=== PATIENT | female | born 1930 | race Caucasian/White ===

== ENCOUNTER 2016-12-04 02:35 | Emergency (ER) | payer OTHER ==
[~2016-12-04] VITALS: Ht 152.4 cm; Wt 60.1 kg
[~2016-12-04 02:35] MED LIST: ASCO500 PO; CALC-137 PO; LEVO75TA3 PO; MEVA40TA PO; VITA100018 PO
[2016-12-04 02:50] VITALS: BP 158/84; PULSE 72; RESP 20; TEMP 98; O2SAT 94
[2016-12-04] MEDS ORDERED: CALC200S NASAL (03:34)
[2016-12-04] MEDS ORDERED: LOVA40TA PO (03:34)
[2016-12-04] MEDS ORDERED: LEVO75TA3 PO (03:34)
[2016-12-04] MEDS ORDERED: CALC1TAB77 PO (03:34)
--- NOTE | 2016-12-04 03:52 | PD ---
HPI Chief Complaint: Fall Time Seen by Provider: 03:44 Travel History International Travel<30 days: No Contact w/Intl Traveler<30days: No Traveled to known affect area: No History of Present Illness HPI The patient is an 86-year-old female that fell at 2 PM lacerating her left lower eyelid. There was no loss of consciousness. The patient's only injury is the laceration of the left lower eyelid. PFSH Social History Tobacco Use: No Allergies-Medications (Allergen,Severity, Reaction): Coded Allergies: Sulfa (Unverified Allergy, Unknown, 12/04/16) Reported Meds & Prescriptions Reported Meds & Active Scripts Active Reported Calcium 500+D3 (Calcium Carbonate-Cholecalciferol) 1,250-400 Mg-Unit Tab 1 Tab PO DAILY Calcitonin ([place]) Nasal [place] (Calcitonin [place]) 200 Unit/Act [place] 1 [place] NASAL DAILY Alternate nostrils daily. Levothyroxine (Levothyroxine Sodium) 75 Mcg Tab 75 Mcg PO DAILY Lovastatin 40 Mg Tab 40 Mg PO DAILY Review of Systems Except as stated in HPI: all other systems reviewed are Neg Physical Exam Narrative GENERAL: Well-nourished, alert and oriented, elderly patient in moderate apparent distress with her left lower eyelid laceration. Her vital signs show blood pressure 158/84 but otherwise normal. SKIN: Focused skin assessment warm/dry. There is a 2 x 1 cm flap over the lower eyelid. The flap is so close to the lid margin that I cannot safely put sutures through this area. HEAD: Normocephalic. EYES: No scleral icterus. No injection or drainage. NECK: Supple, trachea midline. No JVD or lymphadenopathy. CARDIOVASCULAR: Regular rate and rhythm without murmurs, gallops, or rubs. RESPIRATORY: Breath sounds equal bilaterally. No accessory muscle use. GASTROINTESTINAL: Abdomen soft, non-tender, nondistended. MUSCULOSKELETAL: No cyanosis, or edema. BACK: Nontender without obvious deformity. No CVA tenderness. ENT: There is no blood in the nose or nasal deformity. There is nose of nasal trauma or ear trauma. Data Data Last Documented VS Vital Signs Date Time Temp Pulse Resp B/P Pulse Ox O2 Delivery O2 Flow Rate FiO2 12/04/16 02:50 98.0 72 20 158/84 94 MDM Medical Decision Making Medical Screen Exam Complete: Yes Emergency Medical Condition: Yes Medical Record Reviewed: Yes Differential Diagnosis Lower eyelid lacerationneeding ophthalmology, lower eyelid lacerationnot needing ophthalmology Narrative Course The flap laceration has a 1 cm pedicle and is a 2 x 1 cm flap. The pedicle is located temporally on her face. I cannot safely put stitches into the superior border of this flap because it is so close to the lid margin. I discussed the patient with Dr. Zandra Ventura and she graciously agreed to see her in her office at 1 PM today. Diagnosis Primary Impression: Left eyelid laceration Additional Instructions: As we discussed, you need to go to Dr. Ventura's office at 1 PM today so that your eyelid laceration can be repaired. Disposition: 01 DISCHARGE HOME Condition: Stable Ignacio Augustine MD Dec 04, 2016 03:52
[2016-12-16] MEDS ORDERED: ERYTOIN10 LEFT EYE (15:15)
[2016-12-30] MEDS ORDERED: POLYSOL14 LEFT EYE (14:36)
[2017-01-15] MEDS ORDERED: ARTIDRO3 EACH EYE (13:07)
[2017-01-15] MEDS ORDERED: CALC200S NASAL (13:07)
[2017-01-15] MEDS ORDERED: ERYTOIN10 LEFT EYE (13:09)
[2017-01-21] MEDS ORDERED: ERYTOIN10 LEFT EYE (10:21)
== END 2016-12-04 04:10 | disposition home or self-care (01) ==
LOC: PHED 02:35
DX: S01.112A Laceration without foreign body of left eyelid and periocular area, initial encounter (principal); W18.30XA Fall on same level, unspecified, initial encounter
CPT/HCPCS: 99282

== ENCOUNTER 2017-07-18 14:39 | Emergency (ER) | payer OTHER ==
[~2017-07-18] VITALS: Ht 149.9 cm; Wt 57.1 kg
[~2017-07-18 14:39] MED LIST changes: +ARTIDRO3 EACH EYE; -ASCO500 PO; -CALC-137 PO; +CALC1TAB77 PO; +CALC200S NASAL; +ERYTOIN10 LEFT EYE; +LOVA40TA PO; -MEVA40TA PO; -VITA100018 PO
[2017-07-18 15:05] VITALS: BP 190/81; PULSE 68; RESP 16; O2SAT 98
[2017-07-18] MEDS ORDERED: LACT10SO PO (15:35)
--- NOTE | 2017-07-18 15:37 | PD ---
HPI Chief Complaint: GI Complaint Time Seen by Provider: 15:24 Travel History International Travel<30 days: No Contact w/Intl Traveler<30days: No Traveled to known affect area: No History of Present Illness HPI PATIENT STATES UNABLE TO HAVE BM OVER LAST 3 DAYS OR SO, STATES THAT SHE HAS H/ O CONSTIPATION IN PAST AND THIS CAN HAPPEN FROM TIME TO TIME. DENIES ASSOC SX OF FEVER/ABD PAIN/N/V/CP/ DENIES ANY AGGRAVATING/ALLEVIATING FACTORS. PATIENT HAS NOT TRIED TO TAKE ANY OVER THE COUNTER ANTICONSTIPATION MEDICATIONS. PFSH Past Medical History High Cholesterol: Yes Diminished Hearing: No Hypertension: Yes Immunizations Current: Yes Thyroid Disease: Yes Tetanus Vaccination: Unknown ?: Not Past Surgical History Hysterectomy: Yes Social History Alcohol Use: No Tobacco Use: No Substance Use: No Allergies-Medications (Allergen,Severity, Reaction): Coded Allergies: Sulfa (Sulfonamide Antibiotics) (Unverified Allergy, Unknown, 07/18/17) Reported Meds & Prescriptions Reported Meds & Active Scripts Active Reported Artificial Tears Opth Drops (Jbkylajj-Utohhfgellvq-Nuvikcsg Opth Drops) 0.2-0.2- 1% Drops 1-2 Drop EACH EYE PRN PRN Calcitonin ([place]) Nasal [place] (Calcitonin [place]) 200 Units/Act Soln 1 [place] NASAL DAILY Alternate nostrils daily. Calcium 500+D3 (Calcium Carbonate-Cholecalciferol) 1,250-400 Mg-Unit Tab 1 Tab PO DAILY Levothyroxine (Levothyroxine Sodium) 75 Mcg Tab 75 Mcg PO DAILY Lovastatin 40 Mg Tab 40 Mg PO DAILY Review of Systems General / Constitutional: No: Fever Eyes: No: Visual changes HENT: No: Headaches Cardiovascular: No: Chest Pain or Discomfort Respiratory: No: Shortness of Breath Gastrointestinal: Positive: Constipation Genitourinary: No: Dysuria Musculoskeletal: No: Pain Skin: No Rash Neurologic: No: Weakness Psychiatric: No: Depression Endocrine: No: Polydipsia Hematologic/Lymphatic: No: Easy Bruising Physical Exam Narrative GENERAL: SKIN: Warm and dry. HEAD: Atraumatic. Normocephalic. EYES: Pupils equal and round. No scleral icterus. No injection or drainage. ENT: No nasal bleeding or discharge. Mucous membranes pink and moist. NECK: Trachea midline. No JVD. CARDIOVASCULAR: Regular rate and rhythm. RESPIRATORY: No accessory muscle use. Clear to auscultation. Breath sounds equal bilaterally. GASTROINTESTINAL: Abdomen soft, non-tender, nondistended. RN NISHANT AT BEDSIDE WHEN RECTAL EXAM PERFORMED C/W FECAL IMPACTION S/P PARTIAL DISIMPACTION (NO FULL DISIMPACTION BECAUSE DIGIT NOT LONG ENOUGH TO EVACUATE ANY FURTHER. MUSCULOSKELETAL: Extremities without clubbing, cyanosis, or edema. No obvious deformities. NEUROLOGICAL: Awake and alert. No obvious cranial nerve deficits. Motor grossly within normal limits. Five out of 5 muscle strength in the arms and legs. Normal speech. PSYCHIATRIC: Appropriate mood and affect; insight and judgment normal. Data Data Last Documented VS Vital Signs Date Time Temp Pulse Resp B/P (MAP) Pulse Ox O2 Delivery O2 Flow Rate FiO2 07/18/17 15:05 68 16 190/81 (117) 98 Orders Orders Urinalysis - C+S If Indicated (07/18/17 15:29) Abdomen, Flat & Upright (07/18/17 15:29) MDM Medical Decision Making Medical Screen Exam Complete: Yes Emergency Medical Condition: Yes Medical Record Reviewed: Yes Differential Diagnosis SBO V ILEUS V FECAL IMPACTION V CONSTIPATION Narrative Course AFTER DIGITAL DISIMPACTION PATIENT WAS ADVISED TO TAKE MAGNESIUM CITRATE AND LACTULOSE, ONCE BM START OCCURRING PATIENT IS ADVISED TO DISCONTINUE TAKING BOTH. XRAY NEG FOR SBO/ILEUS, UA NEG FOR UTI Diagnosis Primary Impression: FECAL IMPACTION S/P DIGITAL DISIMPACTION Patient Instructions: Fecal Impaction (ED), General Instructions Scripts Lactulose Liq (Lactulose Liq) 10 Gm/15 Ml Soln 30 ML PO Q6H Y for CONSTIPATION, #300 ML 0 Refills Prov: Niraj Cortez MD 07/18/17 Disposition: 01 DISCHARGE HOME Condition: Stable Niraj Cortez MD Jul 18, 2017 15:37
[2017-07-18 15:46] LABS: BLOOD, URINE TRACE (NEG); GLUCOSE,URINE NEG (NEG); KETONE, URINE NEG (NEG); NITRITE,URINE NEG (NEG); PH, URINE 5.5 (5.0-8.5)
[2017-07-18 15:53] LABS: METHOD OF COLLECTION CATH; URINE COLOR YELLOW (YELLW/STRAW)
[2017-07-18 15:54] LABS: COMMENT (UR) CATH-CULT NOT IND; COMMENT2 (UR) MUCOUS PRESENT; CULTURE IF INDICATED CATH CULTURE NOT IND; RBC, URINE 0-3 /hpf (0-3); SQUAMOUS EPITHELIAL CELL URINE 0-5 /hpf (0-5); TRANSITIONAL EPI CELLS, URINE 0-5 /hpf
--- NOTE | 2017-07-18 16:25 | RADRPT ---
EXAM DATE/TIME: 07/18/2017 15:58 [facility] COMPARISON: No previous studies available for comparison. INDICATIONS : Abdominal discomfort. Constipation. MEDICAL HISTORY : None. SURGICAL HISTORY : None. ENCOUNTER: Initial ACUITY: 3 days PAIN SCORE: 6/10 LOCATION: Bilateral lower quadrant FINDINGS: There is diffusely osteopenic and moderate curvature of the thoracolumbar spine convex toward the rig ht upper as well as lower lungs are clear. No dilated loops of small bowel. There is a prominent amount of stool in the right colon and in the region of the rectum. CONCLUSION: Constipation without dilated loops of small bowel. Iam Woodall MD on July 18, 2017 at 16:22 Board Certified Radiologist. This report was verified electronically.
[2017-07-18 16:31] VITALS: BP 182/81
== END 2017-07-18 16:41 | disposition home or self-care (01) ==
LOC: PHED 14:39
DX: K56.41 Fecal impaction (principal); E78.00 Pure hypercholesterolemia, unspecified; I10 Essential (primary) hypertension
CPT/HCPCS: 74020; 81001; 99284

== ENCOUNTER 2017-10-20 21:47 | Emergency (ER) | payer OTHER ==
[~2017-10-20] VITALS: Ht 152.4 cm; Wt 55.0 kg
[~2017-10-20 21:47] MED LIST changes: -ERYTOIN10 LEFT EYE; +LACT10SO PO
[2017-10-20 21:55] VITALS: BP 176/79; PULSE 80; RESP 18; TEMP 98.3; O2SAT 97
[2017-10-20] MEDS ORDERED: VITA2000 PO (22:38)
[2017-10-20] MEDS ORDERED: VITA500T35 PO (22:38)
[2017-10-20] MEDS ORDERED: CIPR250T2 PO (22:38)
[2017-10-20] MEDS ORDERED: predniSONE 20 MG TAB PO ONE (22:45)
[2017-10-20] MEDS ORDERED: MORPHINE SULFATE 2 MG/ML INJ IV PUSH ONE (22:45)
[2017-10-20 23:25] LABS: AUTOMATED NEUTROPHIL # 9.5 TH/MM3 (1.8-7.7); BASOPHIL # 0.1 TH/MM3 (0-0.2); BASOPHIL % 0.5 % (0.0-2.0); EOSINOPHIL % 0.4 % (0.0-4.0); HEMATOCRIT 41.8 % (35.0-46.0); LYMPH % 11.9 % (9.0-44.0); LYMPHOCYTE # 1.4 TH/MM3 (1.0-4.8); MEAN CELL VOLUME 90.3 FL (80.0-100.0); MEAN CORPUSCULAR HEMOGLOBIN 30.4 PG (27.0-34.0); MEAN CORPUSCULAR HGB CONC 33.6 % (32.0-36.0); MEAN PLATELET VOLUME 7.7 FL (7.0-11.0); MONO % 5.6 % (0.0-8.0); MONOCYTE # 0.6 TH/MM3 (0-0.9); NEUT % 81.6 % (16.0-70.0); PLATELET COUNT 260 TH/MM3 (150-450); RED BLOOD COUNT 4.62 MIL/MM3 (4.00-5.30); RED CELL DISTRIBUTION WIDTH 13.8 % (11.6-17.2); WHITE BLOOD COUNT 11.6 TH/MM3 (4.0-11.0)
[2017-10-20 23:36] LABS: BICARBONATE 26.3 MEQ/L (21.0-32.0); CALCIUM 9.6 MG/DL (8.5-10.1); CREATININE 0.71 MG/DL (0.50-1.00)
[2017-10-21] MEDS ORDERED: IOHEXOL 350 MG/ML 10 ML VIAL (for RAD DIAG) IVCONTRAST ONE (00:12)
--- NOTE | 2017-10-21 00:41 | RADRPT ---
EXAM DATE/TIME: 10/21/2017 00:10 [facility] COMPARISON: No previous studies available for comparison. INDICATIONS : Swelling to left neck, dysphagia. IV CONTRAST: 100 cc Omnipaque 350 (iohexol) IV RADIATION DOSE: CTDIvol (mGy) MEDICAL HISTORY : None SURGICAL HISTORY : None. ENCOUNTER: Initial ACUITY: 1 day PAIN SCALE: 5/10 LOCATION: neck TECHNIQUE: Volumetric scanning of the neck was performed. Using automated exposure control and adjustment of th e mA and/or kV according to patient size, radiation dose was kept as low as reasonably achievable to obtain optimal diagnostic quality images. DICOM format image data is available electronically for r eview and comparison. FINDINGS: NASOPHARYNX: The nasopharyngeal airway has a normal configuration. No mucosal thickening or mass is seen. OROPHARYNX: The intrinsic muscles of the tongue are symmetric. The tonsillar pillars are intact. The prevertebr al soft tissues are not thickened. LARYNX: There is asymmetrical prominence of the left posterior paraglottic/infraglottic region with apparent mass effect on the piriform sinus. This region measures approximately 1.6 x 1.3 cm. PARAPHARYNGEAL: The parapharyngeal space is intact. SALIVARY GLANDS: The parotid and submandibular glands are intact. LYMPH NODES: No enlarged or necrotic-appearing nodes. THYROID: Homogeneous enhancement without evidence of nodule. BONES: No focal lytic or blastic bony lesions.. CONCLUSION: 1. Asymmetrical masslike prominence of the left posterior paraglottic/infraglottic region with associ ated mass effect and appear formed sinus. This lesion measures approximately 1.6 x 1.3 cm. No associa rachel necrotic adenopathy. Dariel Nieves MD on October 21, 2017 at 0:30 Board Certified Radiologist. This report was verified electronically.
[2017-10-21] MEDS ORDERED: MEDR4PAK PO (01:20)
[2017-10-21] MEDS ORDERED: TRAM50 PO (01:20)
--- NOTE | 2017-10-21 01:20 | PD ---
HPI . Acute pain. Chief Complaint: Pain: Acute or Chronic Time Seen by Provider: 22:23 Travel History International Travel<30 days: No Contact w/Intl Traveler<30days: No Traveled to known affect area: No History of Present Illness HPI 78-year-old female notes left temporomandibular pain that is exquisite having difficulty opening her mouth secondary to same. Pain is been over the past several days, much worse today. Patient also notes some difficulty in swallowing which is been happening more so of late. Patient is somewhat spurious on details with her swallowing difficulties. Family is as well. Patient denies any recent trauma, denies any fevers chills sweats, denies visual changes, denies headache or neck pain. Patient does note fullness in her neck recently as well. Timeframe unclear as above PFSH Past Medical History Narrative Medical Past medical history reviewed High Cholesterol: Yes Diminished Hearing: No Hypertension: Yes Immunizations Current: Yes Thyroid Disease: Yes Tetanus Vaccination: Unknown Influenza Vaccination: Yes ?: Not Past Surgical History Eye Surgery: Yes (left eye sx x3) Hysterectomy: Yes (partial) Tonsillectomy: Yes Social History Alcohol Use: Yes (wine occasionally) Tobacco Use: No Substance Use: No Allergies-Medications (Allergen,Severity, Reaction): Coded Allergies: Sulfa (Sulfonamide Antibiotics) (Unverified Allergy, Unknown, 10/20/17) Reported Meds & Prescriptions Reported Meds & Active Scripts Active Reported Vitamin B12 (Cyanocobalamin) 500 Mcg Tab 500 Mcg PO DAILY Vitamin D3 (Cholecalciferol) 2,000 Unit Cap 2,000 Units PO DAILY Ciprofloxacin (Ciprofloxacin HCl) 250 Mg Tab 250 Mg PO BID Artificial Tears Opth Drops (Mjfzszdp-Dpliwlqcrdfl-Hsatlnko Opth Drops) 0.2-0.2- 1% Drops 1-2 Drop EACH EYE PRN PRN Calcitonin ([place]) Nasal [place] (Calcitonin [place]) 200 Units/Act Soln 1 [place] NASAL DAILY Alternate nostrils daily. Calcium 500+D3 (Calcium Carbonate-Cholecalciferol) 1,250-400 Mg-Unit Tab 1 Tab PO DAILY Levothyroxine (Levothyroxine Sodium) 75 Mcg Tab 75 Mcg PO DAILY Lovastatin 40 Mg Tab 40 Mg PO DAILY Narrative Medication Allergies and medications reviewed Review of Systems Except as stated in HPI: all other systems reviewed are Neg General / Constitutional: No: Fever Eyes: No: Blurred Vision, Photophobia, Visual changes HENT: Positive: Neck Pain, Dental Difficulties, No: Headaches, Neck Stiffness Cardiovascular: No: Chest Pain or Discomfort Respiratory: No: Shortness of Breath Gastrointestinal: No: Abdominal Pain Genitourinary: No: Dysuria Musculoskeletal: No: Pain Skin: No Rash Neurologic: No: Weakness Psychiatric: No: Depression Endocrine: No: Polydipsia Hematologic/Lymphatic: No: Easy Bruising Physical Exam Narrative GENERAL: Awake alert oriented 3 in no acute distress. Patient appears somewhat uncomfortable. Vital signs afebrile normal and stable SKIN: Warm and dry. No rashes no diaphoresis cyanosis or pallor HEAD: Atraumatic. Normocephalic. Exquisitely tender at the left TMJ no crepitus decreased range of motion secondary to pain EYES: Pupils equal and round. No scleral icterus. No injection or drainage. ENT: No nasal bleeding or discharge. Mucous membranes pink and moist. NECK: Trachea midline. No JVD. Fullness in neck on the patient's left side. Patient has a somewhat hoarse voice tolerating p.o. liquids CARDIOVASCULAR: Regular rate and rhythm. S1-S2 no murmurs rubs or gallops RESPIRATORY: No accessory muscle use. Clear to auscultation. Breath sounds equal bilaterally. GASTROINTESTINAL: Abdomen soft, non-tender, nondistended. Hepatic and splenic margins not palpable. MUSCULOSKELETAL: Extremities without clubbing, cyanosis, or edema. No obvious deformities. NEUROLOGICAL: Awake and alert. No obvious cranial nerve deficits. Motor grossly within normal limits. Five out of 5 muscle strength in the arms and legs. Normal speech. PSYCHIATRIC: Appropriate mood and affect; insight and judgment normal. Data Data Last Documented VS Vital Signs Date Time Temp Pulse Resp B/P (MAP) Pulse Ox O2 Delivery O2 Flow Rate FiO2 10/20/17 21:55 98.3 80 18 176/79 (111) 97 Orders Orders Iv Access Insert/Monitor (10/20/17 22:34) Morphine Inj (Morphine Inj) (10/20/17 22:45) Prednisone (Deltasone) (10/20/17 22:45) Complete Blood Count With Diff (10/20/17 22:37) [place] Sedimentation Rate (10/20/17 22:37) Basic Metabolic Panel (Bmp) (10/20/17 22:37) Ct Soft Tiss Neck W Iv Cont (10/20/17 ) Iohexol 350 Inj (Omnipaque 350 Inj) (10/21/17 00:12) Labs Laboratory Tests Test 10/20/17 22:40 White Blood Count 11.6 TH/MM3 Red Blood Count 4.62 MIL/MM3 Hemoglobin 14.0 GM/DL Hematocrit 41.8 % Mean Corpuscular Volume 90.3 FL Mean Corpuscular Hemoglobin 30.4 PG Mean Corpuscular Hemoglobin Concent 33.6 % Red Cell Distribution Width 13.8 % Platelet Count 260 TH/MM3 Mean Platelet Volume 7.7 FL Neutrophils (%) (Auto) 81.6 % Lymphocytes (%) (Auto) 11.9 % Monocytes (%) (Auto) 5.6 % Eosinophils (%) (Auto) 0.4 % Basophils (%) (Auto) 0.5 % Neutrophils # (Auto) 9.5 TH/MM3 Lymphocytes # (Auto) 1.4 TH/MM3 Monocytes # (Auto) 0.6 TH/MM3 Eosinophils # (Auto) 0.0 TH/MM3 Basophils # (Auto) 0.1 TH/MM3 CBC Comment DIFF FINAL Differential Comment Erythrocyte Sedimentation Rate 16 mm/hr Blood Urea Nitrogen 17 MG/DL Creatinine 0.71 MG/DL Random Glucose 99 MG/DL Calcium Level 9.6 MG/DL Sodium Level 134 MEQ/L Potassium Level 3.7 MEQ/L Chloride Level 100 MEQ/L Carbon Dioxide Level 26.3 MEQ/L Anion Gap 8 MEQ/L Estimat Glomerular Filtration Rate 78 ML/MIN [facility] Medical Decision Making Medical Screen Exam Complete: Yes Emergency Medical Condition: Yes Medical Record Reviewed: Yes Differential Diagnosis Temporomandibular inflammation, TMJ dislocation, neck mass Narrative Course CT soft tissue neck revealed 1.6 x 1.3 cm mass in her left aryepiglottic fold which may be causing her difficulty swallowing and somewhat hoarse voice. This is discussed at length with the family regarding the necessity of follow-up with ENT. Patient is otherwise tolerating p.o. and breathing normally. Patient had interval improvement of her left TMJ pain was able to talk easily with minimal discomfort. Patient's voice also improved after medications. Diagnosis Primary Impression: Neck mass Additional Impressions: TMJ tenderness Qualified Codes: M26.622 - Arthralgia of left temporomandibular joint TMJ inflammation Referrals: Alvarez Meléndez MD Patient Instructions: Acute Neck Pain (ED), General Instructions Additional Instructions: You have inflammation of your left TMJ, as well as a mass in the left side of your neck near your vocal cords. Follow-up with ENT physician for same. Medrol Dosepak tapering steroids as prescribed. Ibuprofen 200 mg every 8 hours for inflammation. Ultram 50 mg every 12 hours as needed for pain. For now, eat pured/soft foods that are easy to swallow and did not need significant chewing. Return promptly for worsening Scripts Tramadol (Ultram) 50 Mg Tab 50 MG PO Q12HR Y for PAIN, #10 TAB 0 Refills Prov: Amish Del Angel MD 10/21/17 Methylprednisolone Dosepak (Medrol Dosepak) 4 Mg Dspk 4 MG PO DIRECTED, #1 DSPK 0 Refills Per Pharmacist direction Prov: Amish Del Angel MD 10/21/17 Disposition: 01 DISCHARGE HOME Condition: Stable Amish Del Angel MD Oct 21, 2017 01:20
== END 2017-10-21 02:11 | disposition home or self-care (01) ==
LOC: NEPE 21:47
DX: R22.1 Localized swelling, mass and lump, neck (principal); M26.622 Arthralgia of left temporomandibular joint; M54.2 Cervicalgia; E78.00 Pure hypercholesterolemia, unspecified; I10 Essential (primary) hypertension; E07.9 Disorder of thyroid, unspecified
CPT/HCPCS: 70491; 80048; 85025; 85652; 96374; 99284; J2270; J7512; Q9967